=== PATIENT | male | born 1990 | race African-American/Black ===

== ENCOUNTER 2018-07-03 11:21 | Emergency (ER) | payer OTHER ==
[2018-07-03] MEDS ORDERED: SODIUM CHLORIDE 0.9% 1,000 ML IV ONE (11:51)
[2018-07-03] MEDS ORDERED: LORazepam 2 MG/ML INJ IV STA (11:51)
[2018-07-03] MEDS ORDERED: ONDANSETRON 4 MG/2 ML VIAL IVP STA ×3 (11:52→23:26)
--- NOTE | 2018-07-03 11:55 | ED ---
General Adult HPI <Emmanuel Giron - Last Filed: 07/03/18 20:32> <Emmanuel Larose - Last Filed: 07/04/18 21:21> - General Stated complaint: poss seizure Time Seen by Provider: 07/03/18 11:25 - History of Present Illness Initial comments: This is a 28-year-old male with past medical history significant for seizures. Patient is on Depakote. Patient has had quite a bit of stress in his life lately and has been drinking and was drinking today. Patient has not been taking his Depakote lately because he's been drinking depressed. Patient had a seizure while visiting his mother in the ICU and family states they caught him before he fell to the ground so they laid him down gently. Father states that the patient seizure lasted approximately 2 minutes. Patient had a short postictal phase and now is acting intoxicated. Patient denies any pain. Patient denies suicidal homicidal ideations. Patient denies any headache patient denies numbness weakness per patient denies chest pain palpitations difficulty breathing or shortness of breath per patient denies abdominal pain patient denies nausea vomiting diarrhea. (Emmanuel Giron) - Related Data Home Medications Medication Instructions Recorded Confirmed Benztropine Mesylate [Cogentin] 0.5 mg PO BID 07/03/18 07/03/18 Cholecalciferol [Vitamin D3] 1,000 unit PO DAILY 07/03/18 07/03/18 Docusate [Colace] 100 mg PO BID PRN 07/03/18 07/03/18 Escitalopram [Lexapro] 20 mg PO DAILY 07/03/18 07/03/18 Multivitamins, Thera [Multivitamin 1 tab PO DAILY 07/03/18 07/03/18 (formulary)] Naltrexone HCl [Revia] 50 mg PO DAILY 07/03/18 07/03/18 Naproxen 500 mg PO Q12H PRN 07/03/18 07/03/18 Pantoprazole Sodium 20 mg PO BID 07/03/18 07/03/18 Prazosin [Minipress] 1 mg PO HS 07/03/18 07/03/18 QUEtiapine [SEROquel] 50 mg PO HS 07/03/18 07/03/18 Valproic Acid 250 mg PO BID 07/03/18 07/03/18 busPIRone HCl [Buspar] 10 mg PO BID 07/03/18 07/03/18 Allergies Allergy/AdvReac Type Severity Reaction Status Date / Time gabapentin Allergy Unknown Verified 07/03/18 11:51 trazodone Allergy Unknown Verified 07/03/18 11:51 Review of Systems ROS Other: All systems not noted in ROS Statement are negative. <Emmanuel Giron - Last Filed: 07/03/18 20:32> ROS Other: All systems not noted in ROS Statement are negative. <Emmanuel Larose - Last Filed: 07/04/18 21:21> ROS Statement: Those systems with pertinent positive or pertinent negative responses have been documented in the HPI. General Exam <Emmanuel Giron - Last Filed: 07/03/18 20:32> General appearance: alert, in no apparent distress Head exam: Present: atraumatic, normocephalic, normal inspection Eye exam: Present: normal appearance, PERRL, EOMI. Absent: scleral icterus, conjunctival injection, periorbital swelling ENT exam: Present: normal exam, mucous membranes moist Neck exam: Present: normal inspection. Absent: tenderness, meningismus, lymphadenopathy Respiratory exam: Present: normal lung sounds bilaterally. Absent: respiratory distress, wheezes, rales, rhonchi, stridor Cardiovascular Exam: Present: regular rate, normal rhythm, normal heart sounds. Absent: systolic murmur, diastolic murmur, rubs, gallop, clicks GI/Abdominal exam: Present: soft, normal bowel sounds. Absent: distended, tenderness, guarding, rebound, rigid Extremities exam: Present: normal inspection, full ROM, normal capillary refill. Absent: tenderness, pedal edema, joint swelling, calf tenderness Back exam: Present: normal inspection Neurological exam: Present: alert, oriented X3, CN II-XII intact Psychiatric exam: Present: normal affect, normal mood Skin exam: Present: warm, dry, intact, normal color. Absent: rash <Emmanuel Larose - Last Filed: 07/04/18 21:21> - General Exam Comments Initial Comments: GENERAL: Patient is well-developed and well-nourished. Patient is nontoxic and well- hydrated and is in mild distress. ENT: Neck is soft and supple. No significant lymphadenopathy is noted. Oropharynx is clear. Moist mucous membranes. Neck has full range of motion without eliciting any pain. EYES: The sclera were anicteric and conjunctiva were pink and moist. Extraocular movements were intact and pupils were equal round and reactive to light. Eyelids were unremarkable. PULMONARY: Unlabored respirations. Good breath sounds bilaterally. No audible rales rhonchi or wheezing was noted. CARDIOVASCULAR: There is a regular rate and rhythm without any murmurs gallops or rubs. ABDOMEN: Soft and nontender with normal bowel sounds. No palpable organomegaly was noted. There is no palpable pulsatile mass. SKIN: Skin is clear with no lesions or rashes and otherwise unremarkable. NEUROLOGIC: Patient is alert and orientation is difficult to assess since the patient is intoxicated. x3. Cranial nerves II through XII are grossly intact. Motor and sensory are also intact. Normal speech, volume and content. Symmetrical smile. MUSCULOSKELETAL: Normal extremities with adequate strength and full range of motion. LYMPHATICS: No significant lymphadenopathy is noted PSYCHIATRIC: Patient denies any suicidal homicidal ideations (Emmanuel Giron) Course <Emmanuel Giron - Last Filed: 07/03/18 20:32> <Emmanuel Larose - Last Filed: 07/04/18 21:21> Vital Signs 07/03/18 07/03/18 07/03/18 11:51 13:30 15:30 Temperature 98.3 F Pulse Rate 80 83 80 Respiratory 18 18 18 Rate Blood Pressure 130/85 102/61 125/67 O2 Sat by Pulse 97 98 98 Oximetry 07/03/18 23:24 Temperature 98.2 F Pulse Rate 91 Respiratory 18 Rate Blood Pressure 113/61 O2 Sat by Pulse 97 Oximetry - Reevaluation(s) Reevaluation #1: Patient is May medically clear for psychiatric evaluation (Emmanuel Larose) Medical Decision Making - Lab Data Result diagrams: 07/03/18 11:45 07/03/18 11:45 <Emmanuel Giron - Last Filed: 07/03/18 20:32> - Lab Data Result diagrams: 07/03/18 11:45 07/03/18 11:45 <Emmanuel Larose - Last Filed: 07/04/18 21:21> - Medical Decision Making I loaded the patient with topical. Dr. Larose will be taking over care of this patient at 9 PM (Emmanuel Giron) 28 male coming the ER for seizure, patient given seizure medication here in the emergency room. Patient stable for discharge home (Emmanuel Larose) - Lab Data Lab Results 07/03/18 07/03/18 Range/Units 11:45 11:45 WBC 4.5 (3.8-10.6) k/uL RBC 5.30 (4.30-5.90) m/uL Hgb 15.3 (13.0-17.5) gm/dL Hct 46.1 (39.0-53.0) % MCV 87.0 (80.0-100.0) fL MCH 28.9 (25.0-35.0) pg MCHC 33.2 (31.0-37.0) g/dL RDW 13.6 (11.5-15.5) % Plt Count 160 (150-450) k/uL Neutrophils % 31 % Lymphocytes % 56 % Monocytes % 5 % Eosinophils % 4 % Basophils % 1 % Neutrophils # 1.4 (1.3-7.7) k/uL Lymphocytes # 2.5 (1.0-4.8) k/uL Monocytes # 0.2 (0-1.0) k/uL Eosinophils # 0.2 (0-0.7) k/uL Basophils # 0.0 (0-0.2) k/uL Sodium 146 H (137-145) mmol/L Potassium 4.5 (3.5-5.1) mmol/L Chloride 106 (98-107) mmol/L Carbon Dioxide 25 (22-30) mmol/L Anion Gap 15 mmol/L BUN 12 (9-20) mg/dL Creatinine 0.94 (0.66-1.25) mg/dL Est GFR (CKD-EPI)AfAm >90 (>60 ml/min/1.73 sqM) Est GFR (CKD-EPI)NonAf >90 (>60 ml/min/1.73 sqM) Glucose 82 (74-99) mg/dL Calcium 9.5 (8.4-10.2) mg/dL Magnesium 1.9 (1.6-2.3) mg/dL Total Bilirubin 0.5 (0.2-1.3) mg/dL AST 28 (17-59) U/L ALT 30 (21-72) U/L Alkaline Phosphatase 48 (38-126) U/L Total Protein 8.3 H (6.3-8.2) g/dL Albumin 5.1 H (3.5-5.0) g/dL Valproic Acid <10.0 ug/mL Serum Alcohol 232 H* mg/dL Disposition <Emmanuel Giron - Last Filed: 07/03/18 20:32> Is patient prescribed a controlled substance at d/c from ED?: No <Emmanuel Larose - Last Filed: 07/04/18 21:21> Clinical Impression: Alcohol intoxication, Generalized seizure Disposition: HOME SELF-CARE Instructions: Recurrent Seizures in Adults (ED) Referrals: None,Stated [Primary Care Provider] - 1-2 days
[2018-07-03 12:23] LABS: Basophils % (A) 1 %; Eosinophils # (A) 0.2 k/uL (0-0.7); Eosinophils % (A) 4 %; HCT 46.1 % (39.0-53.0); HGB 15.3 gm/dL (13.0-17.5); Lymphocytes # (A) 2.5 k/uL (1.0-4.8); Lymphocytes % (A) 56 %; MCH 28.9 pg (25.0-35.0); MCHC 33.2 g/dL (31.0-37.0); Mean Platelet Volume 7.5; Monocytes # (A) 0.2 k/uL (0-1.0); Monocytes % (A) 5 %; Neutrophils # (A) 1.4 k/uL (1.3-7.7); Neutrophils % (A) 31 %; Platelet Count 160 k/uL (150-450); RDW 13.6 % (11.5-15.5); WBC 4.5 k/uL (3.8-10.6)
[2018-07-03 12:30] LABS: ALT 30 U/L (21-72); AST 28 U/L (17-59); Albumin 5.1 g/dL (3.5-5.0); Alkaline Phosphatase 48 U/L (38-126); Anion Gap 15 mmol/L; Blood Urea Nitrogen 12 mg/dL (9-20); Calcium 9.5 mg/dL (8.4-10.2); Carbon Dioxide 25 mmol/L (22-30); Chloride 106 mmol/L (98-107); Glucose 82 mg/dL (74-99); Magnesium 1.9 mg/dL (1.6-2.3); Potassium 4.5 mmol/L (3.5-5.1); Sodium 146 mmol/L (137-145); Total Bilirubin 0.5 mg/dL (0.2-1.3); Total Protein 8.3 g/dL (6.3-8.2)
[2018-07-03 12:36] VITALS: RESP 18
[2018-07-03 12:36] LABS: Alcohol 232 mg/dL
[2018-07-03 13:08] LABS: Valproic Acid (Depakene) <10.0 ug/mL
[2018-07-03] MEDS ORDERED: DIVALPROEX 500 MG TABLET.DR PO STA (20:10)
[2018-07-03] MEDS ORDERED: VALPROATE SODIUM 1,500 MG in SODIUM CHLORIDE 0.9% 50 ML IVPB STA (20:13)
[2018-07-03 23:25] VITALS: BP 113/61; PULSE 91; TEMP 98.2
== END 2018-07-03 23:31 | disposition home or self-care (01) ==
LOC: EC 11:21
DX: G40.89 Other seizures (principal); F10.129 Alcohol abuse with intoxication, unspecified; Z79.899 Other long term (current) drug therapy; Z88.8 Allergy status to other drugs, medicaments and biological substances
CPT/HCPCS: 36415; 80164; 80053; 83735; 85025; 80320; 99284; 96365; 96375 ×2; 96376 ×2; 96361 ×9; J2060; J2405

== ENCOUNTER 2022-07-12 07:38 | Emergency (ER) | payer BC, OTHER ==
[2022-07-12 07:46] VITALS: BP 162/89; PULSE 67; RESP 18; TEMP 98
[2022-07-12] MEDS ORDERED: GELATIN SPONGE,ABSORB (LARGE) 1 EACH SPONGE TOPICAL STA (07:57)
[2022-07-12] MEDS ORDERED: HYDROcodone/APAP 7.5-325MG 1 EACH TAB PO ONE (07:57)
--- NOTE | 2022-07-12 08:05 | ED ---
Trauma HPI - General Chief Complaint: Extremity Injury, Upper Stated Complaint: Finger Injury/Lac Time Seen by Provider: 07/12/22 07:39 Source: patient, RN notes reviewed Mode of arrival: ambulatory Limitations: no limitations - History of Present Illness Initial Comments: Patient is a 32 -year-old male presenting to the ER with a chief complaint of finger injury. Patient states he was switching motors in his car this morning when the engine fell on his right fourth finger. Patient states he wrapped his finger in tissue and electrical tape to control the bleeding. He reports his pain is 10/10. Admits to mild numbness and tingling in digit. Last tetanus was about one year ago. No other complaints at this time. - Related Data Home Medications Medication Instructions Recorded Confirmed Benztropine Mesylate [Cogentin] 0.5 mg PO BID 07/03/18 07/03/18 Cholecalciferol [Vitamin D3] 1,000 unit PO DAILY 07/03/18 07/03/18 Docusate [Colace] 100 mg PO BID PRN 07/03/18 07/03/18 Escitalopram [Lexapro] 20 mg PO DAILY 07/03/18 07/03/18 Multivitamins, Thera [Multivitamin 1 tab PO DAILY 07/03/18 07/03/18 (formulary)] Naltrexone HCl [Revia] 50 mg PO DAILY 07/03/18 07/03/18 Naproxen 500 mg PO Q12H PRN 07/03/18 07/03/18 Pantoprazole Sodium 20 mg PO BID 07/03/18 07/03/18 Prazosin [Minipress] 1 mg PO HS 07/03/18 07/03/18 QUEtiapine [SEROquel] 50 mg PO HS 07/03/18 07/03/18 Valproic Acid [Depakene] 250 mg PO BID 07/03/18 07/03/18 busPIRone HCl [Buspar] 10 mg PO BID 07/03/18 07/03/18 Previous Rx's Medication Instructions Recorded Cephalexin [Keflex] 500 mg PO Q6HR #40 cap 07/12/22 HYDROcodone/APAP 7.5-325MG [Emmett 1 tab PO Q6HR PRN 3 Days #12 tab 07/12/22 7.5-325] Allergies Allergy/AdvReac Type Severity Reaction Status Date / Time gabapentin Allergy Unknown Verified 07/12/22 07:46 trazodone Allergy Unknown Verified 07/12/22 07:46 Review of Systems ROS Statement: Those systems with pertinent positive or pertinent negative responses have been documented in the HPI. ROS Other: All systems not noted in ROS Statement are negative. Past Medical History Past Medical History: Seizure Disorder History of Any Multi-Drug Resistant Organisms: None Reported Past Surgical History: Tonsillectomy Past Psychological History: Anxiety, Depression, PTSD Smoking Status: Never smoker Past Alcohol Use History: Abuse Past Drug Use History: Marijuana General Exam Limitations: no limitations General appearance: alert, in no apparent distress Head exam: Present: atraumatic, normocephalic, normal inspection Eye exam: Present: normal appearance, PERRL, EOMI. Absent: scleral icterus, conjunctival injection, periorbital swelling ENT exam: Present: normal exam, mucous membranes moist Neck exam: Present: normal inspection. Absent: tenderness, meningismus, lymphadenopathy Respiratory exam: Present: normal lung sounds bilaterally. Absent: respiratory distress, wheezes, rales, rhonchi, stridor Cardiovascular Exam: Present: regular rate, normal rhythm, normal heart sounds. Absent: systolic murmur, diastolic murmur, rubs, gallop, clicks GI/Abdominal exam: Present: soft, normal bowel sounds. Absent: distended, tenderness, guarding, rebound, rigid Extremities exam: Present: other (right 4th finger distal to DIP joint missing; actively bleeding; painful motion of PIP joint) Back exam: Present: normal inspection Neurological exam: Present: alert, oriented X3, CN II-XII intact Psychiatric exam: Present: normal affect, normal mood Skin exam: Present: warm, dry, intact, normal color. Absent: rash Course Vital Signs 07/12/22 07:44 Temperature 98 F Pulse Rate 67 Respiratory 18 Rate Blood Pressure 162/89 O2 Sat by Pulse 99 Oximetry Procedures - Nerve Block Consent Obtained: verbal consent Local Anesthetic Used: Lidocaine 1% Amount of anesthesia used: 10 Side: left Nerve Blocks: digital Procedure Successful: Yes Patient Tolerated Procedure: well, no complications Medical Decision Making - Medical Decision Making Patient is a 32 year old male presenting to the ER with a chief complaint of right fourth finger injury. Patient given Emmett for pain. Finger dressed in Gelfoam. Xrays were obtained showing patient was given Kefzol. I did contact on-call orthopedics and discussed the case with Dr. Daniels and Dimitri Crandall advised the patient to call office for an appointment will be followed up next week. Patient discharged with oral antibodies, pain control. Disposition Clinical Impression: Partial traumatic amputation of finger through phalanx Disposition: HOME SELF-CARE Condition: Stable Instructions (If sedation given, give patient instructions): Finger Amputation (ED) Additional Instructions: Please call orthopedics for follow-up appointment. Take antibiotics as directed.Please return to the Emergency Department if symptoms worsen or any other concerns. Prescriptions: Cephalexin [Keflex] 500 mg PO Q6HR #40 cap HYDROcodone/APAP 7.5-325MG [Emmett 7.5-325] 1 tab PO Q6HR PRN 3 Days #12 tab PRN Reason: pain Is patient prescribed a controlled substance at d/c from ED?: Yes When asked, does pt state using other controlled substances?: No If prescribed controlled substance>3 days was MAPS reviewed?: Prescribed <3 Days If opioid is for acute pain is fill amount 7 days or less?: Yes If Rx opioid, was Start Talking consent form obtained?: Yes Referrals: Jose Daniels DO [Doctor of Osteopathic Medicine] - 1-2 days Summer Quintanilla DO [Doctor of Osteopathic Medicine] - 1-2 days Time of Disposition: 08:35
[2022-07-12] MEDS ORDERED: ceFAZolin 1,000 MG VIAL (IM USE) IM STA (08:19)
--- NOTE | 2022-07-12 08:24 | XR ---
EXAMINATION TYPE: XR finger RT DATE OF EXAM: 07/12/2022 COMPARISON: NONE HISTORY: 32 year-old male trauma, motor fell on hand. Pain. 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 There is soft tissue loss as well as franco sverse traumatic osteotomy through the tuft of the distal phalanx. Some punctate hyperdense foreign b delbert material is present dorsally on the lateral view. IMPRESSION: Traumatic amputation to the tuftal tip of the right ring finger. Some punctate hyperdense foreign bod y material present dorsally on the lateral view.
[2022-07-12] MEDS ORDERED: LIDOCAINE 1% INJ 10MG/ML (30 ML VIAL-PF) SQ ONE (08:40)
== END 2022-07-12 09:49 | disposition home or self-care (01) ==
LOC: EC 07:38
DX: S68.124A Partial traumatic metacarpophalangeal amputation of right ring finger, initial encounter (principal); F41.9 Anxiety disorder, unspecified; F32.A Depression, unspecified; F12.90 Cannabis use, unspecified, uncomplicated; Z79.899 Other long term (current) drug therapy; Z88.9 Allergy status to unspecified drugs, medicaments and biological substances; Z88.8 Allergy status to other drugs, medicaments and biological substances; W20.8XXA Other cause of strike by thrown, projected or falling object, initial encounter; Y92.810 Car as the place of occurrence of the external cause
CPT/HCPCS: 73140; 99283; 96372; 12001; J0690; J2001